=== PATIENT | female | born 1975 | race Two or more races ===

== ENCOUNTER 2019-03-18 19:46 | Emergency (ER) | payer OTHER ==
[~2019-03-18] VITALS: Ht 162.6 cm; Wt 78.8 kg
[2019-03-18 19:50] VITALS: BP 129/82
[2019-03-18] MEDS ORDERED: KETOROLAC 30 MG/1 ML ONE (20:20)
[2019-03-18] MEDS ORDERED: METHOCARBAMOL 750 MG TABLET ONE (20:20)
[2019-03-18] MEDS ORDERED: KETOROLAC 30 MG/1 ML IM ONE (20:30)
[2019-03-18] MEDS ORDERED: PLEASE ENTER ALLERGIES MC SCH (20:30)
[2019-03-18] MEDS ORDERED: METHOCARBAMOL 750 MG TABLET PO ONE (20:30)
--- NOTE | 2019-03-18 20:30 | NUR ---
MEDS ADMIN PER MAR
== END 2019-03-18 22:11 | disposition home or self-care (01) ==
LOC: ED 22:00
DX: G89.11 Acute pain due to trauma (principal); M25.511 Pain in right shoulder; M25.562 Pain in left knee; M25.561 Pain in right knee; R07.89 Other chest pain; W01.0XXA Fall on same level from slipping, tripping and stumbling without subsequent striking against object, initial encounter; Y93.89 Activity, other specified; Y92.89 Other specified places as the place of occurrence of the external cause; Y99.8 Other external cause status
CPT/HCPCS: 71111; 73030; 73564; 96372; 99283; J1885